=== PATIENT | female | born 1995 | race Caucasian/White ===

== ENCOUNTER 2021-02-13 15:09 | Inpatient (IN) | payer MEDICAID ==
[~2021-02-13] VITALS: Ht 170.2 cm; Wt 88.5 kg
[2021-02-13] MEDS ORDERED: ZOLPIDEM TARTRATE 10 MG TABLET PO PRN (18:30)
[2021-02-13 18:35] VITALS: BP 100/54
[2021-02-13 19:15] VITALS: BP 100/54
[2021-02-13 19:35] VITALS: BP 116/70
[2021-02-13 20:35] VITALS: BP 126/73
[2021-02-13 21:35] VITALS: BP 108/65
[2021-02-14] VITALS (10 sets, daily range): BP systolic 100–117; BP diastolic 62–79
[2021-02-14] MEDS: SERTRALINE HCL 50 MG TABLET PO SCH (08:44)
[2021-02-14] MEDS: BACITRACIN 28 GM OINTMENT TP SCH (08:44)
[2021-02-14] MEDS ORDERED: ACETAMINOPHEN 325 MG TABLET PO PRN (09:30)
[2021-02-14] MEDS ORDERED: MAG HYDROX/AL HYDROX/SIMETH ES 30 ML SUSPENSION UDCUP PO PRN (09:30)
[2021-02-14] MEDS ORDERED: BACITRACIN 28 GM OINTMENT TP PRN (09:30)
[2021-02-14] MEDS ORDERED: LOPERAMIDE HCL 2 MG CAPSULE PO PRN (09:30)
[2021-02-14] MEDS ORDERED: DOCUSATE SODIUM 100 MG CAPSULE PO PRN (09:30)
[2021-02-14] MEDS ORDERED: ONDANSETRON HCL 4 MG TABLET PO PRN (09:30)
[2021-02-14] MEDS ORDERED: IBUPROFEN 600 MG TABLET PO PRN (09:30)
[2021-02-14] MEDS ORDERED: CloNIDine HCL 0.1 MG TABLET PO PRN (09:30)
[2021-02-14] MEDS ORDERED: PETROLATUM,WHITE 28 GM JELLY TP PRN (09:30)
[2021-02-14] MEDS ORDERED: MAGNESIUM HYDROXIDE SUSPENSION 30 ML UDCUP PO PRN (09:30)
[2021-02-14] MEDS ORDERED: ALBUTEROL SULFATE HFA 90 MCG/PUFF 8 GM INHALER IH PRN (09:30)
[2021-02-14] MEDS ORDERED: BENZOCAINE/MENTHOL LOZENGE PO PRN (09:30)
[2021-02-14] MEDS ORDERED: OMEPRAZOLE 20 MG CAPSULE PO PRN (09:30)
[2021-02-14] MEDS: LORazepam 2 MG TABLET PO PRN (21:24)
[2021-02-14] MEDS: HALOPERIDOL 5 MG TABLET PO PRN (21:25)
[2021-02-15 01:29] VITALS: BP 108/67
[2021-02-15 01:50] VITALS: BP 100/62
[2021-02-15 07:37] LABS: BASOPHILS % (AUTO) 0.5 % (0.0-2.0); EOSINOPHILS % (AUTO) 0.9 % (1.0-6.0); HEMATOCRIT 38.8 % (36-46); HEMOGLOBIN 12.5 g/dL (12.0-16.0); LYMPHOCYTES # (AUTO) 2.8 K/uL (1.0-4.8); LYMPHOCYTES % (AUTO) 27.8 % (22.0-44.0); MEAN CORPUSCULAR HEMOGLOBIN 26.3 pg (26.0-34.0); MEAN CORPUSCULAR HGB CONC 32.2 G/dL (31.0-37.0); MEAN CORPUSCULAR VOLUME 82 fL (80-100); MONOCYTES # (AUTO) 0.6 K/uL (0.1-1.0); MONOCYTES % (AUTO) 6.2 % (2.0-9.0); NEUTROPHILS # (AUTO) 6.4 K/uL (1.8-7.7); NEUTROPHILS % (AUTO) 64.6 % (40.0-70.0); PLATELET COUNT (AUTO) 429 K/uL (150-450); RED BLOOD CELL COUNT(AUTO) 4.76 MIL/uL (4.00-5.20); RED CELL DISTRIBUTION WIDTH 15.7 % (11.5-14.5)
[2021-02-15 07:42] LABS: HEMOGLOBIN A1C 5.8 % (3.8-5.6)
[2021-02-15 08:25] LABS: ALANINE AMINOTRANSFERASE 15 U/L (12-78); ALBUMIN 3.6 g/dL (3.4-5.0); ALKALINE PHOSPHATASE 89 U/L (46-116); ANION GAP 8 mmol/L (8-16); ASPARTATE AMINOTRANSFERASE 11 U/L (15-37); BILIRUBIN,TOTAL 0.4 mg/dL (0.1-1.0); CALCIUM, TOTAL 9.2 mg/dL (8.8-10.5); CARBON DIOXIDE 27 mmol/L (22-29); CHLORIDE 103 mmol/L (98-107); CHOL/HDL RATIO 3.3 (3.9-5.7); CHOLESTEROL 172 mg/dL (131-200); CREATININE 0.78 mg/dL (0.60-1.30); FREE T4 (FREE THYROXINE) 0.82 ng/dL (0.76-1.46); GLOMERULAR FILTR. RATE CALC > 60 mL/min (>60); GLUCOSE,RANDOM 85 mg/dL (70-110); HCG,QUANTITATIVE < 1 mIU/mL (0-6); HDL CHOLESTEROL 52 mg/dL (40-60); LDL CHOL (CALC.) 105 mg/dL (0-130); POTASSIUM 3.7 mmol/L (3.5-5.1); SODIUM SERUM 138 mmol/L (136-145); THYROID STIMULATING HORMONE 1.01 uIU/mL (0.36-3.74); TOTAL PROTEIN, SERUM 7.6 g/dL (6.4-8.2); TRIGLYCERIDES 76 mg/dL (15-150); UREA NITROGEN, BLOOD 14 mg/dL (7-18)
[2021-02-15 08:27] VITALS: BP 104/61
[2021-02-15] MEDS: SERTRALINE HCL 50 MG TABLET PO SCH (08:41)
[2021-02-15] MEDS: BACITRACIN 28 GM OINTMENT TP SCH (08:41)
[2021-02-15 13:00] VITALS: BP 114/70
[2021-02-15] MEDS: LORazepam 2 MG TABLET PO PRN (13:03)
[2021-02-15] MEDS: HALOPERIDOL 5 MG TABLET PO PRN (13:12)
[2021-02-15 14:55] VITALS: BP 104/69
[2021-02-16] MEDS: HALOPERIDOL 5 MG TABLET PO PRN (02:38)
[2021-02-16] MEDS: LORazepam 2 MG TABLET PO PRN ×2 (02:38→09:12)
[2021-02-16 02:50] VITALS: BP 134/79
[2021-02-16 02:55] VITALS: BP 134/79
[2021-02-16] MEDS: SERTRALINE HCL 50 MG TABLET PO SCH (09:12)
[2021-02-16] MEDS: BACITRACIN 28 GM OINTMENT TP SCH (10:31)
[2021-02-16 16:11] VITALS: BP 104/62
[2021-02-17] MEDS: HALOPERIDOL 5 MG TABLET PO PRN (03:27)
[2021-02-17] MEDS: LORazepam 2 MG TABLET PO PRN ×2 (03:27→08:04)
[2021-02-17 05:35] VITALS: BP 116/68
[2021-02-17] MEDS: BACITRACIN 28 GM OINTMENT TP SCH (08:04)
[2021-02-17] MEDS: SERTRALINE HCL 50 MG TABLET PO SCH (08:04)
[2021-02-18] MEDS: LORazepam 2 MG TABLET PO PRN ×3 (01:14→23:45)
[2021-02-18 02:14] VITALS: BP 112/63
[2021-02-18] MEDS: SERTRALINE HCL 50 MG TABLET PO SCH (08:07)
[2021-02-18] MEDS: BACITRACIN 28 GM OINTMENT TP SCH (08:07)
[2021-02-18 16:05] VITALS: BP 101/62
[2021-02-18] MEDS: HALOPERIDOL 5 MG TABLET PO PRN (23:45)
[2021-02-19] MEDS ORDERED: LORazepam 2 MG/ML VIAL IM ONE (04:45)
[2021-02-19] MEDS ORDERED: HALOPERIDOL LACTATE 5 MG/ML VIAL IM ONE (04:45)
[2021-02-19] MEDS ORDERED: DiphenhydrAMINE HCL 50 MG/ML VIAL IM ONE (04:45)
[2021-02-19] MEDS: LORazepam 2 MG TABLET PO PRN ×2 (08:44→23:43)
[2021-02-19] MEDS: SERTRALINE HCL 50 MG TABLET PO SCH (08:44)
[2021-02-19] MEDS: BACITRACIN 28 GM OINTMENT TP SCH (08:44)
[2021-02-19 23:41] VITALS: BP 108/67
[2021-02-20 00:32] VITALS: BP 110/68
[2021-02-20] MEDS: LORazepam 2 MG TABLET PO PRN (04:18)
[2021-02-20 07:53] LABS: COVID AG,FIA SOURCE NASOPHARYNGEAL
[2021-02-20 08:10] VITALS: BP 114/70
[2021-02-20] MEDS: SERTRALINE HCL 50 MG TABLET PO SCH (09:00)
[2021-02-20] MEDS: BACITRACIN 28 GM OINTMENT TP SCH (09:00)
[2021-02-20] MEDS ORDERED: SERT-158 PO (09:21)
== END 2021-02-20 13:05 | disposition home or self-care (01) | DRG 754 ==
LOC: B3A 18:31
PROVIDERS: ADMIT Psychiatry & Neurology Psychiatry; ATTEND Psychiatry & Neurology Psychiatry
DX: F32.9 Major depressive disorder, single episode, unspecified (principal); R45.851 Suicidal ideations; F22 Delusional disorders; F19.10 Other psychoactive substance abuse, uncomplicated; F41.9 Anxiety disorder, unspecified; G47.00 Insomnia, unspecified; Z20.822 Contact with and (suspected) exposure to COVID-19; Z72.0 Tobacco use; Z79.899 Other long term (current) drug therapy
CPT/HCPCS: 80053; 80061; 83036; 84439; 84443; 84702; 85025; 87426; J1200; J1630; J2060; J3535; Q0162